=== PATIENT | female | born 1990 | race Caucasian/White ===

== ENCOUNTER 2017-01-21 17:57 | Emergency (ER) | payer BC ==
[~2017-01-21] VITALS: Ht 175.3 cm; Wt 65.0 kg
[2017-01-21 17:58] VITALS: BP 120/60; PULSE 112; RESP 20; TEMP 97.4; O2SAT 99
--- NOTE | 2017-01-21 18:08 | PD ---
Physical Exam Time Seen by Provider: 18:05 Narrative 26yo F c/o sternal chest pain, lightheadedness, SOB, BUE "falling asleep" today. Denies hx of Anxiety. Has traveled from [place] by plane 2 days ago. LMP last month; due for menses in next couple days. Denies hx asthma. Patient seen in triage. VS reviewed. Awaiting bed placement. Data Data Last Documented VS Vital Signs Date Time Temp Pulse Resp B/P (MAP) Pulse Ox O2 Delivery O2 Flow Rate FiO2 01/21/17 17:58 97.4 112 20 120/60 (80) 99 Room Air MDM Supervised Visit with BHAVESH: Mara Chavez Jan 21, 2017 18:08
[2017-01-21 18:25] VITALS: BP 107/62; PULSE 93; RESP 16; TEMP 97.5; O2SAT 100
--- NOTE | 2017-01-21 18:27 | PD ---
HPI Chief Complaint: Respiratory Symptoms Time Seen by Provider: 18:27 Travel History International Travel<30 days: No Contact w/Intl Traveler<30days: No Traveled to known affect area: No History of Present Illness HPI 26 YO F presents to the ED for evaluation of episodic SOB, mild dizziness and paraesthesias of the extremities today. Gradual onset. Lasting approximately 20 minutes before resolving spontaneously. Accompanied by mild pain beneath the sternum and back pain was present upon waking up today. No exacerbating or alleviating factors reported. She denies previous episodes like this. She denies fevers, chills, headaches, vision changes palpitations, nausea, vomiting , leg pain. She's had one similar episode, about a month ago. She's never been evaluated. Patient recently traveled from [place] by plane and car. She does not take oral contraception. She does not smoke. No family history of [place]. She endorses increased stressors recently. She denies chronic health problems and takes no daily medications. PFSH Past Medical History Medical History: Denies Significant Hx Diminished Hearing: No Immunizations Current: Yes Tetanus Vaccination: Unknown ?: Not LMP: 12/18/16 Past Surgical History Surgical History: No Previous Surgery Social History Alcohol Use: Yes (Ocassionally) Tobacco Use: No Substance Use: No Allergies-Medications (Allergen,Severity, Reaction): Coded Allergies: No Known Allergies (Unverified , 01/21/17) Reported Meds & Prescriptions Reported Meds & Active Scripts Active Vistaril (Hydroxyzine Pamoate) 50 Mg Cap 50 Mg PO BID Review of Systems Except as stated in HPI: all other systems reviewed are Neg Physical Exam Narrative GENERAL: Well-nourished, well-developed mildly tremulous white female in no acute distress. SKIN: Focused skin assessment warm/dry. HEAD: Normocephalic. EYES: No scleral icterus. No injection or drainage. NECK: Supple, trachea midline. No JVD or lymphadenopathy. CARDIOVASCULAR: Regular rate and rhythm without murmurs, gallops, or rubs. 2+ DP and radial pulses bilaterally. RESPIRATORY: Breath sounds clear and equal bilaterally. No accessory muscle use. GASTROINTESTINAL: Abdomen soft, non-tender, nondistended. Active Bowel sounds. MUSCULOSKELETAL: No cyanosis, or edema. NEUROLOGICAL: Awake and alert. Cranial nerves II through XII intact. Motor and sensory grossly within normal limits. Five out of 5 muscle strength in all muscle groups. Normal speech. BACK: Nontender without obvious deformity. No CVA tenderness. Data Data Last Documented VS Vital Signs Date Time Temp Pulse Resp B/P (MAP) Pulse Ox O2 Delivery O2 Flow Rate FiO2 01/21/17 18:25 97.5 93 16 107/62 (77) 100 Room Air Orders Orders Complete Blood Count With Diff (01/21/17 18:21) Comprehensive Metabolic Panel (01/21/17 18:21) D-Dimer (01/21/17 18:21) Act Partial Throm Time (Ptt) (01/21/17 18:21) Prothrombin Time / Inr (Pt) (01/21/17 18:21) Magnesium (Mg) (01/21/17 18:21) Ckmb (Isoenzyme) Profile (01/21/17 18:21) Troponin I (01/21/17 18:21) Urinalysis - C+S If Indicated (01/21/17 18:21) Iv Access Insert/Monitor (01/21/17 18:21) Electrocardiogram (01/21/17 18:21) Ecg Monitoring (01/21/17 18:21) Oximetry (01/21/17 18:21) Chest, Single Ap (01/21/17 18:21) Sodium Chloride 0.9% Flush (Ns Flush) (01/21/17 18:30) Ed Urine Pregnancytest Poc (01/21/17 18:21) Sodium Chlor 0.9% 1000 Ml Inj (Ns 1000 M (01/21/17 19:45) Potassium Chloride (Kcl) (01/21/17 19:45) Ct Brain W/O Iv Contrast(Rout) (01/21/17 19:52) Lorazepam Inj (Ativan Inj) (01/21/17 20:00) Labs Laboratory Tests Test 01/21/17 18:30 01/21/17 18:35 White Blood Count 9.6 TH/MM3 Red Blood Count 4.45 MIL/MM3 Hemoglobin 13.4 GM/DL Hematocrit 38.8 % Mean Corpuscular Volume 87.2 FL Mean Corpuscular Hemoglobin 30.2 PG Mean Corpuscular Hemoglobin Concent 34.6 % Red Cell Distribution Width 12.7 % Platelet Count 235 TH/MM3 Mean Platelet Volume 9.1 FL Neutrophils (%) (Auto) 81.5 % Lymphocytes (%) (Auto) 11.8 % Monocytes (%) (Auto) 6.3 % Eosinophils (%) (Auto) 0.2 % Basophils (%) (Auto) 0.2 % Neutrophils # (Auto) 7.8 TH/MM3 Lymphocytes # (Auto) 1.1 TH/MM3 Monocytes # (Auto) 0.6 TH/MM3 Eosinophils # (Auto) 0.0 TH/MM3 Basophils # (Auto) 0.0 TH/MM3 CBC Comment DIFF FINAL Differential Comment Prothrombin Time 11.8 SEC Prothromb Time International Ratio 1.1 RATIO Activated Partial Thromboplast Time 26.2 SEC D-Dimer Quantitative (PE/DVT) 0.28 MG/L FEU Blood Urea Nitrogen 11 MG/DL Creatinine 1.01 MG/DL Random Glucose 119 MG/DL Total Protein 7.5 GM/DL Albumin 4.2 GM/DL Calcium Level 9.3 MG/DL Magnesium Level 1.7 MG/DL Alkaline Phosphatase 54 U/L Aspartate Amino Transf (AST/SGOT) 18 U/L Alanine Aminotransferase (ALT/SGPT) 25 U/L Total Bilirubin 0.5 MG/DL Sodium Level 133 MEQ/L Potassium Level 3.2 MEQ/L Chloride Level 101 MEQ/L Carbon Dioxide Level 18.2 MEQ/L Anion Gap 14 MEQ/L Estimat Glomerular Filtration Rate 67 ML/MIN Total Creatine Kinase 100 U/L Troponin I LESS THAN 0.02 NG/ML Urine Color YELLOW Urine Turbidity CLEAR Urine pH 6.0 Urine Specific [place] 1.030 Urine Protein 30 mg/dL Urine Glucose (UA) NEG mg/dL Urine Ketones 40 mg/dL Urine Occult Blood NEG Urine Nitrite NEG Urine Bilirubin NEG Urine Urobilinogen 2.0 MG/DL Urine Leukocyte Esterase TRACE Urine RBC 3 /hpf Urine WBC 1 /hpf Urine Squamous Epithelial Cells 1 /hpf Urine Bacteria RARE /hpf Urine Mucus FEW /lpf Microscopic Urinalysis Comment CULT NOT INDICATED MDM Medical Decision Making Medical Screen Exam Complete: Yes Emergency Medical Condition: Yes Interpretation(s) EKG rate 90, sinus rhythm. UT interval 126, QRS 90 and QTc 425 ms. Normal axis. No ST elevations or depressions. Reviewed by Dr. Sequeira. Differential Diagnosis DVT versus PE versus anxiety versus metabolic treatment versus UTI versus versus less likely ACS versus ICH other Narrative Course 26 YO F presents to the ED for evaluation of gradual onset episodic SOB, mild dizziness, paraesthesias of the extremities today. Lasting approximately 20 minutes before resolving spontaneously. No exacerbating or alleviating factors reported. She denies previous episodes. Endorses mild chest pain radiating to the back upon waking this morning. She denies fevers, chills, headaches, vision changes, palpitations, nausea, vomiting, leg pain. She's had one similar episode, about a month ago. Patient recently traveled from [place] by plane and car. She does not take oral contraception or smoke. No family history of [place]. She endorses increased stressors recently. Vitals reviewed. Physical exam reveals a nontoxic-appearing white female in no acute distress. She is mildly tremulous. No focal neuro deficits. No appreciable M/R/G. Chest CTAB. Abdomen soft, nontender. No CVA tenderness. Homans sign negative bilaterally. CBC: No anemia or leukocytosis. CMP: Mild hyponatremia and hypokalemia. BNP: 0.28 UA: No culture indicated. Magnesium: Within normal limits. Urine test negative. EKG: As above. CXR: No acute cardiopulmonary disease. CT of the brain: Normal per radiology read. Patient was administered 1 L normal saline IV, 40 mg potassium by mouth. During the course of evaluation the patient began to experience the paresthesias again. I evaluated her during this time, no change in the neuro exam. She was administered 0.5 mg of Ativan. On recheck she states that she is feeling a little sleepy, reports resolution of the paresthesias. I discussed the results of workup with the patient. I don't feel that there is a reason to keep her in the hospital tonight. The patient does not want to be admitted to the hospital either. The patient does state that she's been camping as she was traveling but denies any significant exposures. Anxiety certainly on the differential. She was prescribed a few doses of Vistaril to try, instructed to avoid known stressors, return to the ED for worsening symptoms. Patient her indicated understanding of instructions and agreeable a care plan. She stable and discharged home. Diagnosis Primary Impression: Shortness of breath Additional Impressions: Paresthesia of both lower extremities Hyponatremia Hypokalemia Referrals: Primary Care Physician Patient Instructions: Anxiety (ED), General Instructions, Shortness of Breath ( ED) Additional Instructions: Rest, hydrate. Avoid known stressors as possible. Take Vistaril as needed for episodes of anxiety. Follow-up with the primary care provider. Return to the ED for worsening symptoms or any urgent or emergent medical condition. Med/Other Pt SpecificInfo: Prescription(s) given Scripts Hydroxyzine Pamoate (Vistaril) 50 Mg Cap 50 MG PO BID for Anxiety, #15 CAP 0 Refills Prov: Katheryn Sequeira DO 01/21/17 Disposition: 01 DISCHARGE HOME Condition: Stable Blaire Syed Jan 21, 2017 18:27
[2017-01-21] MEDS ORDERED: SODIUM CHLORIDE 0.9% FLUSH 10 ML FLUSH IVF PRN (18:30)
[2017-01-21 19:00] VITALS: BP 152/68; PULSE 94; RESP 16; O2SAT 100
[2017-01-21 19:01] LABS: AUTOMATED NEUTROPHIL # 7.8 TH/MM3 (1.8-7.7); BASOPHIL % 0.2 % (0.0-2.0); EOSINOPHIL % 0.2 % (0.0-4.0); HEMATOCRIT 38.8 % (35.0-46.0); HEMO FLAGS DIFF FINAL; LYMPH % 11.8 % (9.0-44.0); LYMPHOCYTE # 1.1 TH/MM3 (1.0-4.8); MEAN CELL VOLUME 87.2 FL (80.0-100.0); MEAN CORPUSCULAR HEMOGLOBIN 30.2 PG (27.0-34.0); MEAN CORPUSCULAR HGB CONC 34.6 % (32.0-36.0); MONO % 6.3 % (0.0-8.0); NEUT % 81.5 % (16.0-70.0); PLATELET COUNT 235 TH/MM3 (150-450); RED BLOOD COUNT 4.45 MIL/MM3 (4.00-5.30); RED CELL DISTRIBUTION WIDTH 12.7 % (11.6-17.2); WHITE BLOOD COUNT 9.6 TH/MM3 (4.0-11.0)
[2017-01-21 19:08] LABS: BACTERIA, URINE RARE /hpf; BLOOD, URINE NEG (NEG); COMMENT (UR) CULT NOT INDICATED; CULTURE IF INDICATED CULT NOT INDICATED; GLUCOSE,URINE NEG (NEG); KETONE, URINE 40 mg/dL (NEG); MUCUS URINE FEW /lpf (OCC); NITRITE,URINE NEG (NEG); SQUAMOUS EPITHELIAL CELL URINE 1 /hpf (0-5); URINE COLOR YELLOW (YELLW/STRAW)
[2017-01-21 19:13] LABS: APTT (PATIENT) 26.2 SEC (24.3-30.1); INTERNATIONAL NORMALIZED RATIO 1.1 RATIO; PROTHROMBIN TIME - PATIENT 11.8 SEC (9.8-11.6)
[2017-01-21 19:22] LABS: ANION GAP 14 MEQ/L (5-15); AST (GOT) 18 U/L (15-37); BICARBONATE 18.2 MEQ/L (21.0-32.0); BLOOD UREA NITROGEN 11 MG/DL (7-18); CHLORIDE 101 MEQ/L (98-107); GLOMERULAR FILTRATION RATE 67 ML/MIN (>89); MAGNESIUM 1.7 MG/DL (1.5-2.5); POTASSIUM 3.2 MEQ/L (3.5-5.1); SODIUM (NA) 133 MEQ/L (136-145)
[2017-01-21 19:23] LABS: ALT (GPT) 25 U/L (10-53)
[2017-01-21 19:27] LABS: ALKALINE PHOSPHATASE 54 U/L (45-117); CREATINE KINASE 100 U/L (26-192); TOTAL BILIRUBIN ADULT 0.5 MG/DL (0.2-1.0)
[2017-01-21] MEDS ORDERED: POTASSIUM CHLORIDE 20 MEQ CONTROLLED RELEASE TAB PO ONE (19:45)
[2017-01-21] MEDS ORDERED: SODIUM CHLOR 0.9% 1000 ML INJ 1,000 ML IV ONE (19:45)
[2017-01-21] MEDS ORDERED: LORazepam 2 MG/ML VIAL IV PUSH ONE (20:00)
--- NOTE | 2017-01-21 20:16 | RADRPT ---
EXAM DATE/TIME: 01/21/2017 19:00 [facility] COMPARISON: No previous studies available for comparison. INDICATIONS : Short of breath and feeling weak. MEDICAL HISTORY : None. SURGICAL HISTORY : None. ENCOUNTER: Initial ACUITY: 1 day PAIN SCORE: 0/10 LOCATION: Bilateral chest FINDINGS: A single view of the chest demonstrates the lungs to be symmetrically aerated without evidence of mas s, infiltrate or effusion. The cardiomediastinal contours are unremarkable. Osseous structures are intact. CONCLUSION: No acute disease. Evans Chinchilla MD on January 21, 2017 at 20:14 Board Certified Radiologist. This report was verified electronically.
--- NOTE | 2017-01-21 21:13 | RADRPT ---
EXAM DATE/TIME: 01/21/2017 20:03 [facility] COMPARISON: No previous studies available for comparison. INDICATIONS : Dizzness RADIATION DOSE: 56.81 CTDIvol (mGy) MEDICAL HISTORY : None SURGICAL HISTORY : None. ENCOUNTER: Initial ACUITY: 1 day PAIN SCALE: 0/10 LOCATION: cranial TECHNIQUE: Multiple contiguous axial images were obtained of the head. Using automated exposure control and adj ustment of the mA and/or kV according to patient size, radiation dose was kept as low as reasonably a chievable to obtain optimal diagnostic quality images. DICOM format image data is available electro nically for review and comparison. FINDINGS: CEREBRUM: The ventricles are normal for age. No evidence of midline shift, mass lesion, hemorrhage or acute in farction. No extra-axial fluid collections are seen. POSTERIOR FOSSA: The cerebellum and brainstem are intact. The 4th ventricle is midline. The cerebellopontine angle i s unremarkable. EXTRACRANIAL: The visualized portion of the orbits is intact. SKULL: The calvaria is intact. No evidence of skull fracture. CONCLUSION: Normal examination. Evans Chinchilla MD on January 21, 2017 at 21:11 Board Certified Radiologist. This report was verified electronically.
[2017-01-21] MEDS ORDERED: VIST50CA PO (21:32)
[2017-01-21 21:44] VITALS: BP 131/63
--- NOTE | 2017-01-23 01:03 | EKG ---
Date Performed: 01/21/2017 Time Performed: 18:42:28 PTAGE: 26 years EKG: Sinus rhythm NONSPECIFIC T-WAVE ABNORMALITY BORDERLINE ECG NO PREVIOUS TRACING DOCTOR: Bienvenido Bustamante Interpretating Date/Time 01/23/2017 01:01:15
== END 2017-01-21 22:01 | disposition home or self-care (01) ==
LOC: NEPC 17:57
DX: R06.02 Shortness of breath (principal); R20.8 Other disturbances of skin sensation; E87.1 Hypo-osmolality and hyponatremia; E87.6 Hypokalemia; R42 Dizziness and giddiness; R07.9 Chest pain, unspecified; M54.9 Dorsalgia, unspecified
CPT/HCPCS: 70450; 71010; 80053; 81001; 82550; 83735; 84484; 84703; 85025; 85379; 85610; 85730; 93005; 96361; 96374; 99285; J2060; J7030